=== PATIENT | male | born 1955 | race Caucasian/White ===

== ENCOUNTER 2018-11-28 01:33 | Emergency (ER) | payer OTHER, MEDICAID ==
[2018-11-28 02:39] LABS: URINE BLOOD (Dip) POC 3+ (NEGATIVE); URINE GLUCOSE (Dip) POC Negative (NEGATIVE); URINE KETONES (Dip) POC Negative (NEGATIVE); URINE LEUKOCYTE EST (Dip) POC Negative (NEGATIVE); URINE NITRITE (Dip) POC Negative (NEGATIVE); URINE TOTAL PROTEIN POC 1+ (NEGATIVE)
[2018-11-28 02:39] LABS: URINE PH (Dip) POC 5.5 (5.0-8.5)
== END 2018-11-28 03:20 | disposition home or self-care (01) ==
LOC: E/R 01:33
DX: R33.9 Retention of urine, unspecified (principal)
CPT/HCPCS: 51702; 81003; 99283-25

== ENCOUNTER 2018-11-30 13:16 | Emergency (ER) | payer OTHER, MEDICAID ==
[2018-11-30 14:18] LABS: URINE PH (Dip) POC 5.5 (5.0-8.5)
[2018-11-30 14:18] LABS: URINE BLOOD (Dip) POC 3+ (NEGATIVE); URINE GLUCOSE (Dip) POC Negative (NEGATIVE); URINE KETONES (Dip) POC Trace (NEGATIVE); URINE LEUKOCYTE EST (Dip) POC 1+ (NEGATIVE); URINE NITRITE (Dip) POC Negative (NEGATIVE); URINE TOTAL PROTEIN POC 3+ (NEGATIVE)
== END 2018-11-30 15:20 | disposition home or self-care (01) ==
LOC: FTE 13:16
DX: R33.9 Retention of urine, unspecified (principal)
CPT/HCPCS: 81003; 99283